=== PATIENT | male | born 1975 | race Caucasian/White ===

== ENCOUNTER 2020-07-22 08:39 | Day surgery (SDC) | payer OTHER ==
[~2020-07-22] VITALS: Ht 172.7 cm; Wt 121.6 kg
[2020-07-22] MEDS ORDERED: ATOR20 PO (10:01)
[2020-07-22] MEDS ORDERED: LISI20 PO (10:01)
[2020-07-22] MEDS ORDERED: SUBOXONE 8 MG-1 EACH SL (10:02)
== END 2020-07-22 11:30 | disposition home or self-care (01) ==
LOC: ORSCSDS 08:39
PROVIDERS: Orthopaedic Surgery
PROC: 01N54ZZ Release Median Nerve, Percutaneous Endoscopic Approach (ICD-10-PCS; principal; 2020-07-22 10:00)
DX: G56.03 Carpal tunnel syndrome, bilateral upper limbs (principal); I10 Essential (primary) hypertension; E78.5 Hyperlipidemia, unspecified; Z87.891 Personal history of nicotine dependence; E66.01 Morbid (severe) obesity due to excess calories; Z68.41 Body mass index [BMI] 40.0-44.9, adult
CPT/HCPCS: J2250

== ENCOUNTER 2024-08-01 05:29 | Day surgery (SDC) | payer OTHER ==
[~2024-08-01] VITALS: Ht 172 cm; Wt 119.0 kg
[2024-08-01] VITALS (7 sets, daily range): BP systolic 116–143; BP diastolic 75–90
[~2024-08-01 05:29] MED LIST: ATOR20 PO; LISI20 PO; SUBOXONE 8 MG-1 EACH SL
[2024-08-01] MEDS ORDERED: CeFAZolin Sodium 3,000 MG in NS 100 ML IV SCH (06:15)
[2024-08-01] MEDS ORDERED: Lactated Ringer's 1,000 ML IV SCH (06:15)
[2024-08-01] MEDS ORDERED: CeFAZolin Sodium 2,000 MG in NS 100 ML IV SCH (06:30)
[2024-08-01] MEDS ORDERED: DAILY-VITE1 EAC1 PO (06:43)
[2024-08-01] MEDS ORDERED: FentaNYL Citrate 50 MCG/ML 2 ML Injection ONE (06:44)
[2024-08-01] MEDS ORDERED: propofoL 20 ML IV ONE ×2 (06:44)
[2024-08-01] MEDS ORDERED: Midazolam HCl 1MG / ML 2ML Vial ONE (06:44)
[2024-08-01] MEDS ORDERED: FentaNYL Citrate 50 MCG/ML 2 ML Injection IV PRN ×2 (06:55→07:00)
[2024-08-01] MEDS ORDERED: HydrALAZINE HCl 20 MG / ML 1ML Vial IV PRN (06:55)
[2024-08-01] MEDS ORDERED: Bupivacaine 0.5% HCl 5 MG/ML 30MLVIAL ONE (06:55)
[2024-08-01] MEDS ORDERED: Ondansetron HCl 2 MG / ML 2ML Vial IV PRN (07:00)
[2024-08-01] MEDS ORDERED: HYDROmorphone HCl/Pf 1MG SYR IV PRN ×2 (07:00)
[2024-08-01] MEDS ORDERED: Metoclopramide HCl 5MG / ML 2ML Vial IV PRN (07:00)
[2024-08-01] MEDS ORDERED: ePHEDrine Sulfate 50 MG/ML 1ML Injection IV PRN (07:00)
[2024-08-01] MEDS ORDERED: Atropine Sulfate 0.1 MG/ML 10ML SYR IV PRN (07:00)
[2024-08-01] MEDS ORDERED: Ondansetron HCl 2 MG / ML 2ML Vial ONE (07:49)
[2024-08-01] MEDS ORDERED: Dexamethasone Sod Phos 10 MG/ML 1ML VIAL ONE (07:49)
[2024-08-01] MEDS ORDERED: Rocuronium Bromide 10 MG/ML 5ML Injection IV ONE (07:49)
[2024-08-01] MEDS ORDERED: Ketorolac Tromethamine 30mg Vial ONE (07:49)
[2024-08-01] MEDS ORDERED: Sugammadex Sodium 200 MG/2ML SDV (100 MG/ML) ONE (07:51)
[2024-08-01] MEDS ORDERED: Glycopyrrolate 0.2 MG/ML 5ML VIAL ONE (08:12)
[2024-08-01] MEDS ORDERED: HYDROcodone 5-APAP 325 TAB PO PRN (09:00)
--- NOTE | 2024-08-01 09:38 | NUR ---
Dressing to procedure site clean, dry, intact with no visible drainage, swelling, erythema or bruising noted. Discharge instructions reviewed with patient. Patient verbalizes understanding. Copy given to patient to take home. Discharged via wheelchair to private car for ride home.
== END 2024-08-01 09:39 | disposition home or self-care (01) ==
LOC: ORSCMMR 05:29 → ORD 07:30 → ORSCMMR 09:39
PROVIDERS: Surgery
PROC: 0WUF0JZ Supplement Abdominal Wall with Synthetic Substitute, Open Approach (ICD-10-PCS; principal; 2024-08-01 07:30)
DX: K42.0 Umbilical hernia with obstruction, without gangrene (principal); I10 Essential (primary) hypertension; E78.5 Hyperlipidemia, unspecified; Z87.891 Personal history of nicotine dependence; E66.01 Morbid (severe) obesity due to excess calories; Z68.41 Body mass index [BMI] 40.0-44.9, adult
CPT/HCPCS: C1781; J0690; J1100; J1885; J2250; J2405; J2704; J3010; J7120